=== PATIENT | male | born 1980 | race Caucasian/White ===

== ENCOUNTER 2020-09-15 03:20 | Observation (INO) ==
[2020-09-15] MEDS ORDERED: *HR* FentaNYL (PF) 100 MCG/2 ML VIAL IVP ONE (03:30)
[2020-09-15 03:39] LABS: Basophils % 0.1 %; Eosinophils # 0.2 K/mcL (0.0-0.6); Eosinophils % 2.9 %; Hematocrit 46.2 % (37.5-50.1); Hemoglobin 16.2 g/dL (12.9-16.9); Immature Granulocytes % 0.5 % (0-4); Lymphocytes # 3.5 K/mcL (0.6-4.6); Lymphocytes % 46.7 %; Mean Corpuscular HGB Conc 35.1 g/dL (31.6-35.5); Mean Corpuscular Hemoglobin 31.5 pg (28.0-33.3); Mean Corpuscular Volume 89.9 fL (83.0-100.0); Mean Platelet Volume 10.6 fL (9.4-12.4); Monocytes # 0.4 K/mcL (0.0-1.3); Monocytes % 5.7 %; Neutrophils # 3.3 K/mcL (1.6-8.9); Platelet Count 200 K/mcL (140-400); Red Blood Count 5.14 M/mcL (4.19-5.50); Red Cell Distribution Width 12.6 % (11.5-14.5); Segmented Neutrophils % 44.1 %; White Blood Count 7.5 K/mcL (4.3-11.1)
[2020-09-15 03:56] LABS: Activated Partial Thrombo Time 34.4 Seconds (26.0-36.0)
[2020-09-15 04:00] LABS: BUN/Creatinine Ratio 15 (6-26); Blood Urea Nitrogen 12 mg/dL (6-20); Calcium 10.1 mg/dL (8.6-10.3); Carbon Dioxide 20 mEq/L (23-29); Chloride 105 mEq/L (98-107); D-Dimer < 215 ng/mLFEU (0-500); Glucose 98 mg/dL (70-105); Osmolality,Calculated 286 (280-300); Potassium 3.7 mEq/L (3.5-5.1); Sodium 138 mEq/L (136-145); eGFR For African Americans > 60 (> 60); eGFR For Non-African Americans > 60 (> 60)
[2020-09-15 04:02] LABS: Troponin I < 0.03 ng/mL (< 0.04)
[2020-09-15] MEDS ORDERED: Naloxone 0.4 MG/ML INJ IVP PRN (05:46)
[2020-09-15] MEDS ORDERED: Acetaminophen 325 MG TABLET PO PRN (05:46)
[2020-09-15] MEDS ORDERED: Ondansetron ODT 4 MG TAB.RAPDIS SL PRN (05:46)
[2020-09-15] MEDS ORDERED: Perflutren Lipid Microsphere 1.3 ML in 0.9 % Sodium Chloride 8.7 ML IVP PRN (05:48)
[2020-09-15 05:49] LABS: Salicylate < 2.5 mg/dL (15.0-30.0)
[2020-09-15] MEDS ORDERED: Regadenoson 0.4 MG/5 ML SYRINGE IVP ONE (06:21)
[2020-09-15 06:49] LABS: Chol/HDL Ratio 7.5 (0-4.9); Cholesterol 241 mg/dL (< 200); HDL Cholesterol 32 mg/dL (40-59); Phosphorous 2.5 mg/dL (2.7-4.5); Triglycerides 446 mg/dL (< 150); Troponin I < 0.03 ng/mL (< 0.04)
[2020-09-15 08:42] LABS: Adenovirus Not Detected (Not Detect); Bordetella Pertussis Not Detected (Not Detect); Chlamydophila pneumoniae Not Detected (Not Detect); Coronavirus 229E Not Detected (Not Detect); Coronavirus HKU1 Not Detected (Not Detect); Coronavirus NL63 Not Detected (Not Detect); Coronavirus OC43 Not Detected (Not Detect); Human Metapneumovirus Not Detected (Not Detect); Human Rhinovirus/Enterovirus Not Detected (Not Detect); Influenza A Subtype 2009 H1 Not Detected (Not Detect); Influenza B Not Detected (Not Detect); Mycoplasma pneumoniae Not Detected (Not Detect); Parainfluenza Virus 1 Not Detected (Not Detect); Parainfluenza Virus 2 Not Detected (Not Detect); Parainfluenza Virus 3 Not Detected (Not Detect); Parainfluenza Virus 4 Not Detected (Not Detect); Respiratory Syncytial Virus Not Detected (Not Detect); SARS-CoV-2 Not Detected (Not Detect)
[2020-09-15 08:52] LABS: Amphetamine Screen,Urine Negative ng/mL (Cutoff=1000); Barbiturate Screen,Urine Negative ng/mL (Cutoff=200); Benzodiazepines Screen,Urine Negative ng/mL (Cutoff=200); Cannabinoid Screen,Urine Positive ng/mL (Cutoff = 50); Cocaine Screen,Urine Negative ng/mL (Cutoff= 300); Opiate Screen,Urine Negative ng/mL (Cutoff=300); Phencyclidine Screen,Urine Negative ng/mL (Cutoff=25)
[2020-09-15] MEDS ORDERED: Aspirin 81 MG TAB.CHEW PO SCH (09:00)
[2020-09-15 12:00] LABS: Estimated Average Glucose 120 mg/dl
[2020-09-15] MEDS ORDERED: Ketorolac 15 MG/ML VIAL IVP PRN (12:15)
[2020-09-15] MEDS ORDERED: Pantoprazole 40 MG VIAL IVP SCH (12:30)
[2020-09-15 15:01] VITALS: BP 131/73
[2020-09-15] MEDS ORDERED: Isovue-370 500 ML BOTTLE IVP ONE (15:08)
== END 2020-09-15 16:23 | disposition left against medical advice (07) ==
LOC: EMEROOARM 03:20 → 3BNU 03:20 → SUATTDRO 06:00 → 3BNU 06:37
PROVIDERS: ADMIT Internal Medicine; ATTEND Internal Medicine